=== PATIENT | female | born 1960 | race Two or more races ===

== ENCOUNTER 2016-08-22 23:43 | Emergency (ER) | payer SELFPAY ==
[~2016-08-22] VITALS: Ht 152.4 cm; Wt 72.1 kg
[2016-08-23 00:37] LABS: BASO # 0.1 x10^3/uL (0.0-0.2); BASO % 1 % (0-3); EOS % 1 % (0-3); HEMATOCRIT 32.6 % (36.0-47.0); HEMOGLOBIN 10.6 g/dL (12.0-15.5); LYMPH # 2.8 x10^3/uL (1.0-4.8); LYMPH % 18 % (24-48); MEAN CORPUSCULAR HEMOGLOBIN 31 pg (25-35); MEAN CORPUSCULAR HGB CONC 33 g/dL (31-37); MEAN CORPUSCULAR VOLUME 96 fL (79-100); MONO % 6 % (0-9); NEUT % 75 % (31-73); PLATELET COUNT 261 x10^3/uL (140-400); WHITE BLOOD COUNT 15.7 x10^3/uL (4.0-11.0)
[2016-08-23] MEDS ORDERED: DEXAMETHASONE SOD PHOS 20 MG/5 ML VIAL. IV ONE (00:45)
[2016-08-23] MEDS ORDERED: IV NORMAL SALINE 500ML BAG 500 ML IV ONE (00:45)
[2016-08-23] MEDS ORDERED: METOCLOPRAMIDE HCL 10 MG/2 ML VIAL. IV ONE (00:45)
[2016-08-23] MEDS ORDERED: DIPHENHYDRAMINE 50 MG/ML VIAL IVP ONE (00:45)
[2016-08-23] MEDS ORDERED: KETOROLAC TROMETHAMINE 30 MG/ML SYRINGE. IV ONE (00:45)
[2016-08-23 00:50] LABS: CALCIUM 9.3 mg/dL (8.5-10.1); CREATININE 1.1 mg/dL (0.6-1.0); GFR 51.4; POTASSIUM 4.5 mmol/L (3.5-5.1)
--- NOTE | 2016-08-23 00:54 | RAD ---
PQRS STATEMENT One or more of the following individualized dose reduction techniques were utilized for this study: 1.Automated exposure control 2.Adjustment of the mA and/or kV according to patient size 3.Use of iterative reconstruction technique CT HEAD Indication: headache x 5 days; no trauma
hx: hypertensionReason: headache x 5 days; no trauma / Spl. Instructions: / History: COMPARISON: None TECHNIQUE: 5 mm contiguous axial images were obtained from the skull base to the vertex in both bone and soft tissue algorithm. FINDINGS: No abnormal attenuation within the brain parenchyma. No evidence of acute intracranial hemorrhage. No extra-axial fluid collections. No mass effect or midline shift.Ventricular size is appropriate. Basal cisterns are patent. No fractures identified. Globes and orbits are within normal limits. Paranasal sinuses and mastoid air cells are clear. IMPRESSION: No acute intracranial abnormality. Electronically signed by: Khang Gonzalez (Aug 23, 2016 00:52:25)
[2016-08-23 01:08] VITALS: BP 185/83
--- NOTE | 2016-08-23 01:41 | PHYS DOC ---
Past Medical History Past Medical History: Diabetes-Type II, Hypertension Past Surgical History: Other Additional Past Surgical Histo: LASIK Alcohol Use: None Drug Use: None Adult General Chief Complaint Chief Complaint: HEADACHE HPI HPI This is a 56 year old female who is having severe right sided headache that does radiate into the back of her head for the last 5 days with some nausea and photophobia. Patient does have history of intermittent headaches but has never had one quite to this level severity. She denies any fever or chills. She denies any chest pain or shortness of breath. She does state she has history of hypertension that is controlled medications. Currently she rates her headache a 10 out of 10 localized to the right side of her head. She denies any visual disturbances. Review of Systems Review of Systems Constitutional: Denies fever or chills [] Eyes: Denies change in visual acuity, redness, or eye pain [] HENT: Denies nasal congestion or sore throat [] Respiratory: Denies cough or shortness of breath [] Cardiovascular: No additional information not addressed in HPI [] GI: Denies abdominal pain, nausea, vomiting, bloody stools or diarrhea [] : Denies dysuria or hematuria [] Musculoskeletal: Denies back pain or joint pain [] Integument: Denies rash or skin lesions [] Neurologic: Has headache, denies focal weakness or sensory changes [] Endocrine: Denies polyuria or polydipsia [] Current Medications Current Medications Current Medications Medications (Trade) Dose Ordered Sig/Marli Start Time Stop Time Status Last Admin Dose Admin Dexamethasone Sodium Phosphate 10 mg 10 mg 1X ONCE 08/23/16 00:45 08/23/16 00:46 DC 08/23/16 00:52 10 MG Diphenhydramine HCl (Benadryl) 25 mg 1X ONCE 08/23/16 00:45 08/23/16 00:46 DC 08/23/16 00:52 25 MG Ketorolac Tromethamine (Toradol) 30 mg 1X ONCE 08/23/16 00:45 08/23/16 00:46 DC 08/23/16 00:51 30 MG Metoclopramide HCl (Reglan) 10 mg 1X ONCE 08/23/16 00:45 08/23/16 00:46 DC 08/23/16 00:53 10 MG Sodium Chloride (Iv Sodium Chloride 0.9% 500ml Bag) 500 ml @ 500 mls/hr 1X ONCE 08/23/16 00:45 08/23/16 01:44 08/23/16 00:51 500 MLS/HR Allergies Allergies Allergies Coded Allergies Type Severity Reaction Last Updated Verified No Known Drug Allergies 08/23/16 No Physical Exam Physical Exam Constitutional: Well developed, well nourished, no acute distress, non-toxic appearance. [] HENT: Normocephalic, atraumatic, bilateral external ears normal, oropharynx moist, no oral exudates, nose normal. [] Eyes: PERRLA, EOMI, conjunctiva normal, no discharge. [] Neck: Normal range of motion, no tenderness, supple, no stridor. [] Cardiovascular:Heart rate regular rhythm, no murmur [] Lungs & Thorax: Bilateral breath sounds clear to auscultation [] Abdomen: Bowel sounds normal, soft, no tenderness, no masses, no pulsatile masses. [] Skin: Warm, dry, no erythema, no rash. [] Back: No tenderness, no CVA tenderness. [] Extremities: No tenderness, no cyanosis, no clubbing, ROM intact, no edema. [] Neurologic: Alert and oriented X 3, normal motor function, normal sensory function, no focal deficits noted. [] Psychologic: Affect normal, judgement normal, mood normal. [] Current Patient Data Vital Signs Vital Signs Date Time Temp Pulse Resp B/P Pulse Ox O2 Delivery O2 Flow Rate FiO2 08/23/16 00:05 97.7 80 20 234/103 97 Room Air 97.7 Lab Values Laboratory Tests Test 08/23/16 00:08 White Blood Count 15.7x10^3/uL (4.0-11.0) H Red Blood Count 3.40x10^6/uL (3.50-5.40) L Hemoglobin 10.6g/dL (12.0-15.5) L Hematocrit 32.6% (36.0-47.0) L Mean Corpuscular Volume 96fL (79-100) Mean Corpuscular Hemoglobin 31pg (25-35) Mean Corpuscular Hemoglobin Concent 33g/dL (31-37) Red Cell Distribution Width 13.0% (11.5-14.5) Platelet Count 261x10^3/uL (140-400) Neutrophils (%) (Auto) 75% (31-73) H Lymphocytes (%) (Auto) 18% (24-48) L Monocytes (%) (Auto) 6% (0-9) Eosinophils (%) (Auto) 1% (0-3) Basophils (%) (Auto) 1% (0-3) Neutrophils # (Auto) 11.8x10^3uL (1.8-7.7) H Lymphocytes # (Auto) 2.8x10^3/uL (1.0-4.8) Monocytes # (Auto) 0.9x10^3/uL (0.0-1.1) Eosinophils # (Auto) 0.1x10^3/uL (0.0-0.7) Basophils # (Auto) 0.1x10^3/uL (0.0-0.2) Sodium Level 140mmol/L (136-145) Potassium Level 4.5mmol/L (3.5-5.1) Chloride Level 102mmol/L (98-107) Carbon Dioxide Level 31mmol/L (21-32) Anion Gap 7 (6-14) Blood Urea Nitrogen 22mg/dL (7-20) H Creatinine 1.1mg/dL (0.6-1.0) H Estimated GFR (Cockcroft-Gault) 51.4 Glucose Level 178mg/dL (70-99) H Calcium Level 9.3mg/dL (8.5-10.1) Laboratory Tests 08/23/16 00:08 Laboratory Tests 08/23/16 00:08 EKG EKG [] Radiology/Procedures Radiology/Procedures CT of the head without contrast demonstrated the following: No abnormal attenuation within the brain parenchyma. No evidence of acute intracranial hemorrhage. No extra-axial fluid collections. No mass effect or midline shift.Ventricular size is appropriate. Basal cisterns are patent. No fractures identified. Globes and orbits are within normal limits. Paranasal sinuses and mastoid air cells are clear. Course & Med Decision Making Course & Med Decision Making Pertinent Labs and Imaging studies reviewed. (See chart for details) 56-year-old female has a head CT that stated for any acute abnormalities. Her bloodwork is also unrevealing at this time. A migraine cocktail was administered with significant relief of the patient's symptoms. I will be discharging her home to follow closely with her primary care doctor over the next several days and have her blood pressure reevaluated at that time. She is very agreeable with this plan and left the department feeling much improved. Kelly Disclaimer Kelly Disclaimer This electronic medical record was generated, in whole or in part, using a voice recognition dictation system. Departure Departure Impression: Primary Impression: Migraine Disposition: HOME, SELF-CARE Condition: IMPROVED Referrals: UNKNOWN PCP NAME (PCP) Patient Instructions: Migraine Headache, [id number] Additional Instructions: Please follow up with your primary care doctor in the next several days as discussed. Have your blood pressure reevaluated at that time. Return to the ER if you develop any worsening of your symptoms. SAL ALMONTE DO Aug 23, 2016 01:41
[2016-08-23 01:50] LABS: BILIRUBIN,URINE NEGATIVE (NEG); GLUCOSE,URINE 100 mg/dL (NEG); NITRITE,URINE NEGATIVE (NEG); PROTEIN,URINE 100 mg/dL (NEG-TRACE); UROBILINOGEN,URINE 0.2 mg/dL (0.2 mg/dL)
[2016-08-23 02:08] LABS: OBC FLU VALID
[2016-08-23 02:13] LABS: BACTERIA,URINE FEW /HPF (0-FEW); RBC,URINE OCC /HPF (0-2); SQUAMOUS EPITHELIAL CELL,UR FEW /LPF
== END 2016-08-23 02:07 | disposition home or self-care (01) ==
LOC: ER 23:43
DX: G43.009 Migraine without aura, not intractable, without status migrainosus (principal); E11.9 Type 2 diabetes mellitus without complications; I10 Essential (primary) hypertension
CPT/HCPCS: 36415; 70450; 80048; 81001; 85027; 87804; 96361; 96374; 96375; 99285; J1100; J1200; J1885; J2765; J7040

== ENCOUNTER → 2017-04-05 | Outpatient (CLI) | payer OTHER ==
--- NOTE | 2017-04-05 16:21 | KCIC ---
Examination: Single frontal view chest HISTORY: History of positive TB reactor COMPARISON: None available Findings: Lung volumes and technique accentuates heart size and pulmonary vascularity. There is no acute infiltrate or visualized pneumothorax. IMPRESSION: No acute cardiopulmonary findings. Electronically signed by: Galindo Monte MD (04/05/2017 4:18 PM) [facility]
== END | disposition home or self-care (01) ==
LOC: KCIC 15:53
PROVIDERS: ATTEND Family Medicine
DX: R76.11 Nonspecific reaction to tuberculin skin test without active tuberculosis (principal)
CPT/HCPCS: 71010

== ENCOUNTER → 2020-05-01 | Outpatient (CLI) | payer OTHER ==
[~2020-05-01] MED LIST: GADOTERATE 7.5 MMOL/15ML VIAL. IVP ONE
--- NOTE | 2020-05-01 16:10 | RAD ---
Examination: PELVIS WO/W CONTRAST History: Reason: OVARIAN CYST, 16ML DOTAREM / Comparison/Correlation: None Findings: Multi plantar, multisequence images of the pelvis were obtained. Following IV gadolinium contrast, imaging was again performed. Motion mildly limits evaluation on some series. There is a 1.6 cm diameter right adnexal follicle which is physiologic in appearance. No abnormal enhancement identified. It has simple fluid characteristics. There is a left adnexal 8.7 cm x 6.4 cm x 7.8 cm longitudinal left adnexal cystic structure. It is of high signal intensity on long TR images. It is of intermediate signal intensity on short TR images. There is a 0.5 cm diameter low signal intensity component at the inferior wall extending into the lumen. No enhancement is present. There is no suspicious wall thickening of the cystic structure. No septations identified. Uterus is unremarkable. No enlarged pelvic lymph nodes. No pelvic free fluid. Hip joints are symmetric and unremarkable. Visualized musculature about the pelvis is normal. Hematopoietic marrow is present. Impression: Large left adnexal cystic structure. Signal characteristics suggest underlying proteinaceous/hemorrhagic components. No fluid level evident. No suspicious enhancement. There is a very small focus of nodularity without enhancement at this site. No aggressive features to suggest a malignant process. Findings are most compatible with a benign process. Possibility of a benign neoplastic process is not entirely excluded. Correlate with prior exams if available to assess stability. Electronically signed by: Octavio Mitchell MD (05/01/2020 4:07 PM) [id number]
== END | disposition home or self-care (01) ==
LOC: MRI 08:39
PROVIDERS: ATTEND Family Medicine
DX: N83.202 Unspecified ovarian cyst, left side (principal)
CPT/HCPCS: 72197; A9575